=== PATIENT | male | born 1955 | race Caucasian/White ===

== ENCOUNTER → 2018-03-13 | Outpatient (CLI) | payer OTHER ==
--- NOTE | 2018-03-13 16:28 | RAD ---
Left wrist, 3 views, 03/13/2018: HISTORY: Injury, pain No acute fracture or dislocation is identified. 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 There is moderate intracarpal degenerative change laterally. A small well-defined calcific density adjacent to the styloid process of the distal radius is compatible with old trauma. IMPRESSION: 1. 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 2. No acute bony abnormality is detected. Electronically signed by: Catracho Bright MD (03/13/2018 4:25 PM) [facility]
== END | disposition home or self-care (01) ==
LOC: PMG 10:25
PROVIDERS: ATTEND Physician Assistant
DX: M19.032 Primary osteoarthritis, left wrist (principal)
CPT/HCPCS: 73110